=== PATIENT | female | born 1980 | race Caucasian/White ===

== ENCOUNTER → 2016-07-04 | Outpatient (CLI) | payer SELFPAY ==
[~2016-07-04] MED LIST: ASPIRIN81 M2 PO; CENTRUM PO; CRESTOR40 MG PO; ESTRADIOL1 MG PO; METFORMIN HCL500 M2 PO; PRILOSEC PO; SYNTHROID125 PO; WELLBUTRIN XL150 M1 PO
[2016-07-04 13:06] LABS: CHOLESTEROL 253 mg/dL (0-200); GLUCOSE RANDOM 90 mg/dL (70-110); HDL CHOLESTEROL 44 mg/dL (35-95); LDL/HDL RATIO 4 RATIO (0-4); TRIGLYCERIDES 242 mg/dL (10-160)
[2016-07-04 13:08] LABS: LDL CHOLESTEROL 161 mg/dL (-130)
== END | disposition home or self-care (01) ==
LOC: CBAR 11:42
PROVIDERS: Surgery
DX: E66.01 Morbid (severe) obesity due to excess calories (principal)
CPT/HCPCS: 36415; 76000; 80061; 82947